=== PATIENT | male | born 2000 | race Caucasian/White ===

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

== ENCOUNTER 2025-05-04 03:16 | Emergency (ER) | payer MEDICAID ==
[~2025-05-04] VITALS: Ht 188 cm; Wt 68.0 kg
[2025-05-04 03:17] VITALS: O2SAT 100
[2025-05-04] MEDS: LEVETIRACETAM 1000MG PREMIX 100 ML IV ONE (03:58)
[2025-05-04 05:50] VITALS: BP 131/87; PULSE 84; RESP 16; TEMP 36.8; O2SAT 100
== END 2025-05-04 05:50 | disposition home or self-care (01) ==
LOC: ER 03:16
DX: R56.9 Unspecified convulsions (principal)
CPT/HCPCS: 99284; 96365; J1953